=== PATIENT | female | born 1945 | race Hispanic/Latino ===

== ENCOUNTER 2018-01-18 08:58 | Emergency (ER) | payer OTHER ==
[2018-01-18] MEDS ORDERED: KETOROLAC TROMETHAMINE 30MG/ML ONE (09:49)
[2018-01-18] MEDS ORDERED: PREDNISONE 20 MG TABLET ONE (09:49)
[2018-01-18] MEDS ORDERED: ORPHENADRINE CITRATE 30 MG/ML ML ONE (09:50)
== END 2018-01-18 11:03 | disposition home or self-care (01) ==
LOC: EDH 08:58
DX: M54.2 Cervicalgia (principal); R51 Headache; I10 Essential (primary) hypertension; R05 Cough; E78.5 Hyperlipidemia, unspecified
CPT/HCPCS: 70450; 72125; 93005; 96372 ×2; 99285; J1885; J2360